=== PATIENT | female | born 1955 | race Caucasian/White ===

== ENCOUNTER 2018-03-02 21:28 | Observation (INO) | payer BC, OTHER ==
[2018-03-02] MEDS ORDERED: NS 1,000 ML IV ONE ×2 (21:50→22:34)
[2018-03-02] MEDS ORDERED: ONDANSETRON 4 MG/2 ML VIAL IVP ONE (21:50)
--- NOTE | 2018-03-02 21:52 | EDPHY ---
H & P Time Seen by Provider: 03/02/18 21:36 HPI/ROS: CHIEF COMPLAINT: Abdominal pain and vomiting HISTORY OF PRESENT ILLNESS: Patient was feeling well yesterday. She woke up at around 8:00 a.m. And felt nausea, within the next hour she had right-sided abdominal pain and multiple episodes of vomiting. No diarrhea. Symptoms a crampy and would get worse with the pain and she would vomit and feel little bit better. Not associated with fever or chills or urinary symptoms. No recent injury fall or trauma. No recent foreign travel. No previous abdominal surgery except for . REVIEW OF SYSTEMS: Eye: no change in vision ENT: no sore throat Cardiac: no chest pain or syncope Pulmonary: no cough or SOB Abdomen: HPI Musculoskeletal: no back pain Skin: no rash Neuro: no headache Constitutional: no fever : no urinary symptoms A comprehensive 10 point review of systems is otherwise negative aside from elements mentioned in the history of present illness. PAST MEDICAL HISTORY: and foot surgery Social history: , nonsmoker General Appearance: Alert and conversant, cooperative. Eyes: No scleral icterus. ENT, Mouth: Dry mucous membranes. Respiratory: Normal respiratory effort, breath sounds equal, lungs are clear to auscultation. Cardiovascular: Regular rate and rhythm. Gastrointestinal: Bilateral lower abdominal tenderness without rebound or guarding. Neurological: Alert, face symmetric, normal motor and sensory in extremities. Skin: Warm and dry, no rashes. Musculoskeletal: No peripheral edema. Psychiatric: Not agitated. Emergency Department course/MDM: Patient declined pain medication. IV normal saline 1 L and Zofran 4 mg IV for nausea and vomiting. I-STAT, CT scanning of abdomen and pelvis discussed and consented. Differential includes but not limited to bowel obstruction, renal colic, appendicitis, diverticulitis. 2225: Appendicitis on CT per Dr. Florian, with appendicolith. Surgical consultation and IV antibiotics. Discussed with Nicholas. Cefoxitin 1 g IV. Results discussed with the patient and her spouse, including CT results. Smoking Status: Never smoked Constitutional: Initial Vital Signs Temperature (C) 36.6 C 03/02/18 21:36 Heart Rate 90 03/02/18 21:36 Respiratory Rate 16 03/02/18 21:36 Blood Pressure 132/69 H 03/02/18 21:36 O2 Sat (%) 97 03/02/18 21:36 O2 Delivery Mode Room Air Allergies/Adverse Reactions: No Known Allergies Allergy (Unverified 03/02/18 21:36) Home Medications: Medication Instructions Recorded traMADol 03/02/18 Medical Decision Making - Diagnostics Imaging Results: Imaging Impressions Abdomen CT 03/02/18 21:55 Impression: 1. Findings compatible with appendicitis and appendicolith. 2. Incidental uterine fibroids. 3. Borderline splenomegaly. Findings discussed with Cayetano Underwood M.D. at 22:23 hour, 03/02/2018. Imaging: Discussed imaging studies w/ call center dispatcher Radiologist Differential Diagnosis: Differential considered including but not limited to gastroenteritis, food poisoning, appendicitis, diverticulitis, bowel obstruction. - Data Points Laboratory Results: Laboratory Results 03/02/18 21:46 03/02/18 03/02/18 03/02/18 21:53 21:46 21:46 WBC RBC Hgb POC Hgb 15.3 gm/dL gm/dL (12.6-16.3) Hct POC Hct 45 % % (38-47) MCV MCH MCHC RDW Plt Count MPV Neut % (Auto) Lymph % (Auto) [place] % (Auto) Eos % (Auto) Baso % (Auto) Nucleat RBC Rel Count Absolute Neuts (auto) Absolute Lymphs (auto) Absolute Monos (auto) Absolute Eos (auto) Absolute Basos (auto) Absolute Nucleated RBC Immature Gran % Immature Gran # POC Sodium 137 mEq/L mEq/L (135-145) Sodium Pending POC Potassium 3.4 mEq/L mEq/L (3.3-5.0) Potassium Pending POC Chloride 98 mEq/L mEq/L (97-110) Chloride Pending Carbon Dioxide Pending Anion Gap Pending POC BUN 11 mg/dL mg/dL (7-23) BUN Pending Creatinine Pending POC Creatinine 0.7 mg/dL mg/dL (0.6-1.0) Estimated GFR Pending Glucose Pending POC Glucose 150 mg/dL H mg/dL (70-100) Calcium Pending Total Bilirubin Pending Conjugated Bilirubin Pending Unconjugated Bilirubin Pending AST Pending ALT Pending Alkaline Phosphatase Pending Total Protein Pending Albumin Pending Lipase Pending 03/02/18 21:46 WBC 14.48 10^3/uL H 10^3/uL (3.80-9.50) RBC 4.68 10^6/uL 10^6/uL (4.18-5.33) Hgb 14.3 g/dL g/dL (12.6-16.3) POC Hgb Hct 40.4 % % (38.0-47.0) POC Hct MCV 86.3 fL fL (81.5-99.8) MCH 30.6 pg pg (27.9-34.1) MCHC 35.4 g/dL g/dL (32.4-36.7) RDW 12.2 % % (11.5-15.2) Plt Count 219 10^3/uL 10^3/uL (150-400) MPV 10.5 fL fL (8.7-11.7) Neut % (Auto) 86.5 % H % (39.3-74.2) Lymph % (Auto) 8.6 % L % (15.0-45.0) [place] % (Auto) 4.2 % L % (4.5-13.0) Eos % (Auto) 0.1 % L % (0.6-7.6) Baso % (Auto) 0.3 % % (0.3-1.7) Nucleat RBC Rel Count 0.0 % % (0.0-0.2) Absolute Neuts (auto) 12.50 10^3/uL H 10^3/uL (1.70-6.50) Absolute Lymphs (auto) 1.25 10^3/uL 10^3/uL (1.00-3.00) Absolute Monos (auto) 0.61 10^3/uL 10^3/uL (0.30-0.80) Absolute Eos (auto) 0.02 10^3/uL L 10^3/uL (0.03-0.40) Absolute Basos (auto) 0.05 10^3/uL 10^3/uL (0.02-0.10) Absolute Nucleated RBC 0.00 10^3/uL 10^3/uL (0-0.01) Immature Gran % 0.3 % % (0.0-1.1) Immature Gran # 0.05 10^3/uL 10^3/uL (0.00-0.10) POC Sodium Sodium POC Potassium Potassium POC Chloride Chloride Carbon Dioxide Anion Gap POC BUN BUN Creatinine POC Creatinine Estimated GFR Glucose POC Glucose Calcium Total Bilirubin Conjugated Bilirubin Unconjugated Bilirubin AST ALT Alkaline Phosphatase Total Protein Albumin Lipase Medications Given: Discontinued Medications Sodium Chloride (Ns) 1,000 mls @ 0 mls/hr IV EDNOW ONE; Wide Open PRN Reason: Protocol Stop: 03/02/18 21:51 Last Admin: 03/02/18 21:56 Dose: 1,000 mls Ondansetron HCl (Zofran) 4 mg IVP EDNOW ONE Stop: 03/02/18 21:51 Last Admin: 03/02/18 21:56 Dose: 4 mg Point of Care Test Results: Chemistry 03/02/18 21:53 POC Sodium 137 mEq/L mEq/L (135-145) POC Potassium 3.4 mEq/L mEq/L (3.3-5.0) POC Chloride 98 mEq/L mEq/L (97-110) POC BUN 11 mg/dL mg/dL (7-23) POC Creatinine 0.7 mg/dL mg/dL (0.6-1.0) POC Glucose 150 mg/dL H mg/dL (70-100) ISTAT H&H 03/02/18 21:53 POC Hgb 15.3 gm/dL gm/dL (12.6-16.3) POC Hct 45 % % (38-47) Departure - Departure Disposition: [facility] Inpatient Acute Clinical Impression: Acute appendicitis Qualifiers: Acute appendicitis type: with localized peritonitis Appendicitis gangrene presence: without gangrene Appendicitis perforation presence: without perforation Appendicitis abscess presence: without abscess Qualified Code(s): K35.30 - Acute appendicitis with localized peritonitis, without perforation or gangrene Nausea & vomiting Qualifiers: Vomiting type: unspecified Vomiting Intractability: non-intractable Qualified Code(s): R11.2 - Nausea with vomiting, unspecified Condition: Good
[2018-03-02] MEDS ORDERED: IOPAMIDOL (ISOVUE-300) 100 ML BTL ONE (21:56)
[2018-03-02 21:58] LABS: PLATELET COUNT 219 10^3/uL (150-400)
[2018-03-02] MEDS ORDERED: ONDANSETRON 4MG PREPACK#2 BTL TAKEHOME ONE (22:16)
[2018-03-02] MEDS ORDERED: cefOXitin SODIUM 1 GM in NS 50 ML IV ONE (22:25)
[2018-03-02] MEDS ORDERED: DIAZEPAM 5 MG/ML 1 ML SYR IVP ONE (22:50)
[2018-03-02] MEDS ORDERED: BUPIVACAINE 0.5% 30 ML SDV ONE (23:09)
[2018-03-02] MEDS ORDERED: METRONIDAZOLE 500 MG/NACL/100 ML BAG IV ONE (23:18)
[2018-03-02] MEDS ORDERED: MIDAZOLAM 2 MG/2 ML VIAL IVP ONE (23:39)
--- NOTE | 2018-03-02 23:53 | PDANEPAE ---
ANE History of Present Illness Appendectomy laparoscopic ANE Past Medical History - Cardiovascular History Hx Hypertension: No Hx Arrhythmias: No Hx Chest Pain: No Hx Coronary Artery / Peripheral Vascular Disease: No Hx CHF / Valvular Disease: No Hx Palpitations: No - Pulmonary History Hx COPD: No Hx Asthma/Reactive Airway Disease: No Hx Recent Upper Respiratory Infection: No Hx Oxygen in Use at Home: No Hx Sleep Apnea: No - Endocrine History Hx Diabetes: No Hypothyroid: No Hyperthyroid: No Obesity: no ANE Review of Systems Review of systems is: negative Review of Systems: - Exercise capacity METS (RN): 4 METS ANE Patient History - Allergies Allergies/Adverse Reactions: No Known Allergies Allergy (Unverified 03/02/18 21:36) - Home Medications Home medications: home medication list seen and reviewed Home Medications: traMADol 03/02/18 [Last Taken Unknown] - NPO status NPO Status: no food or drink >8 hours NPO Since - Liquids (Date): 03/02/18 NPO Since - Liquids (Time): 17:00 NPO Since - Solids (Date): 03/01/18 NPO Since - Solids (Time): 22:00 - Anes Hx Anes Hx: post operative nausea - Smoking Hx Smoking Status: Never smoked Marijuana use: Yes - Alcohol Use Alcohol Use: Rarely - Family Anes Hx Family Anes Hx: none ANE Labs/Vital Signs - Labs Result Diagrams: 03/02/18 21:46 03/02/18 21:46 - Vital Signs Blood Pressure: 127/76 Heart Rate: 85 Respiratory Rate: 18 O2 Sat (%): 96 Height: 165.1 cm Weight: 56.699 kg ANE Physical Exam - Airway Neck exam: FROM Mallampati Score: Class 2 Mouth exam: small mouth opening - Pulmonary Pulmonary: no respiratory distress, no rales or rhonchi - Cardiovascular Cardiovascular: regular rate and rhythym, no murmur, rub, or gallop - ASA Status ASA Status: I, E ANE Anesthesia Plan Anesthesia Plan: general endotracheal anesthesia Specialized Airway: video laryngoscope
--- NOTE | 2018-03-02 23:57 | PDGENHP ---
History & Physical Chief Complaint: rlq pain History of Present Illness: 62 female with 12 hrs of rlq pain and nausea and emesis. ct scan shows acute appendicitis. wbc 13k. risks and options fully discussed/ admit for lap appe Pertinent Past, Social, Family History: Pmh: foot surgery, csections. NKA. meds none. soc hx nonsmoker. Fam hx noncontributory. ros -10 pt review Relevant Physical Exam: Gen alert, no acute distress. chest clear. cor rr. abd soft, tender rlq with guarding and rebound. extrem ok except recent foot surgery. neuro physiologic. psych alert, oriented, cooperative Cardiorespiratory Assessment: acute appe. plan: lap appe/ risks and options fully discussed
[2018-03-02] MEDS ORDERED: MIDAZOLAM 2 MG/2 ML VIAL ONE (23:58)
[2018-03-03] MEDS ORDERED: ONDANSETRON 4 MG/2 ML VIAL IVP PRN ×2 (00:01→01:12)
[2018-03-03] MEDS ORDERED: OXYCODONE/APAP 5/325 TAB PO PRN (00:01)
[2018-03-03] MEDS ORDERED: HYDROmorphONE/DILAUDID 1 MG/ML INJ IVP PRN (00:01)
[2018-03-03] MEDS ORDERED: PROPOFOL/EMULSION 500 MG/50 ML BOTTLE IV ONE (00:02)
[2018-03-03] MEDS ORDERED: fentaNYL 100 MCG/2 ML INJ ONE ×2 (00:02)
[2018-03-03] MEDS ORDERED: ONDANSETRON 4 MG/2 ML VIAL ONE (00:08)
[2018-03-03] MEDS ORDERED: LIDOCAINE 2% 5 ML SDV ONE (00:08)
[2018-03-03] MEDS ORDERED: ROCURONIUM 50 MG/5 ML VIAL ONE (00:09)
[2018-03-03] MEDS ORDERED: D5W 1/2 NS W/ 20 KCl/L 1,000 ML IV SCH (00:15)
[2018-03-03] MEDS ORDERED: SUGAMMADEX SODIUM 200 MG/2 ML VIAL IVP ONE (00:48)
--- NOTE | 2018-03-03 01:02 | POSTOPPROG ---
Post Op Note Date of Operation: 03/03/18 Surgeon: Zack Peterson Anesthesiologist: ROBERT Anesthesia: GET(General Endotracheal) Pre-op Diagnosis: ACUTE APPE Post-op Diagnosis: SAME Indication: PAIN Procedure: LAP APPE Findings: ACUTE APPENDICITIS Inf/Abcess present in the surg proc area at time of surgery?: Yes Depth: Organ Space EBL: Minimal Complications: 0 Specimen(s): APPENDIX
[2018-03-03] MEDS ORDERED: NALOXONE HCL 0.4 MG/ML INJ IVP PRN (01:12)
[2018-03-03] MEDS ORDERED: fentaNYL 100 MCG/2 ML INJ IVP PRN (01:12)
[2018-03-03] MEDS ORDERED: HYDROmorphONE/DILAUDID 2 MG/ML INJ IVP PRN (01:12)
[2018-03-03] MEDS ORDERED: KETOROLAC 15 MG/1 ML SDV IVP SCH (06:00)
--- NOTE | 2018-03-03 08:07 | SOAPPROG ---
SOAP Progress Note Assessment/Plan: Assessment/Plan: 62 Y F s/p lap appy, nonperforated appendicitis. Doing very well. Pain controlled. Tolerating breakfast. Wounds ok. Will d/c to home. S: eager to go home. O: alert, nad, smiling no wob rrr abd soft, inc cdi 03/03/18 08:04 Objective: Vital Signs Temp Pulse Resp BP Pulse Ox 37.0 C 68 16 92/62 L 92 03/03/18 05:00 03/03/18 05:00 03/03/18 05:00 03/03/18 05:00 03/03/18 05:00 03/02/18 03/03/18 03/04/18 05:59 05:59 05:59 Intake Total 2240 Output Total 802 Balance 1438 ICD10 Worksheet Patient Problems: Problems Problem Status Onset Acute appendicitis Acute Nausea & vomiting Acute
--- NOTE | 2018-03-03 08:09 | POSTANESTH ---
Post Anesthetic Evaluation Cardiovascular Status: Normal, Stable Respiratory Status: Normal, Stable Level of Consciousness/Mental Status: Can Participate in Eval Pain Control: Adequate, Prn Tx Ordered Nausea/Vomiting Control: Adequate, Prn Tx Ordered Complications Possibly Related to Anesthesia: None Noted
[2018-03-03 09:15] VITALS: BP 105/67
--- NOTE | 2018-03-04 18:05 | GOP ---
DATE OF OPERATION: 03/02/2018 SURGEON: Zack Peterson MD PREOPERATIVE DIAGNOSIS: Acute appendicitis. POSTOPERATIVE DIAGNOSIS: Acute appendicitis. PROCEDURE PERFORMED: Laparoscopic appendectomy. FINDINGS: Patient was found to have acute purulent appendicitis without perforation. DESCRIPTION OF PROCEDURE: The patient was taken to the operating room where she received satisfactor y general endotracheal anesthesia. She was placed in supine position, prepped and draped in usual st erile fashion. Periumbilical incision was made. A Veress needle inserted. Pneumoperitoneum was established. Troca r was introduced. Laparoscope introduced. Good visualization was obtained. Two other trocars place d in the lower abdomen under direct vision. Cecum was rotated medially and the appendix was well vis ualized. It was elevated up. It was quite inflamed and covered with fibrinous exudate. Mesoappendi x was divided with the Harmonic scalpel until the base was skeletonized. It was then divided with a MARISELA stapler, placed in a specimen bag, and removed. Wound was irrigated. Hemostasis was assured. T rocars removed under direct vision. Trocar sites were closed with 0 Vicryl for the fascia, 4-0 Monoc ryl subcuticular stitch for the skin. All layers infiltrated with 0.5% Marcaine. Blood loss was neg ligible. Taken recovery room in good condition. There were no complications. /[id number]/MODL
== END 2018-03-03 11:10 | disposition home or self-care (01) ==
LOC: FOB 03-03 04:38
PROVIDERS: ADMIT Surgery; ATTEND Surgery
PROC: 0DTJ4ZZ Resection of Appendix, Percutaneous Endoscopic Approach (ICD-10-PCS; principal; 2018-03-03 00:01)
DX: K35.80 Unspecified acute appendicitis (principal); E86.9 Volume depletion, unspecified
CPT/HCPCS: 44970; 74177; 96361; 96365; 96375; 99285; G0378; 82435-PO; 82565-PO; 82947-PO; 84132-PO; 84295-PO; 84520-PO; 85014-PO; J0694; J1885; J2250; J2405; J2704; J3010; J3360; Q9967

== ENCOUNTER 2018-03-05 01:47 | Emergency (ER) | payer OTHER ==
[2018-03-05 02:15] LABS: PLATELET COUNT 200 10^3/uL (150-400)
[2018-03-05] MEDS ORDERED: MAGNESIUM CITRATE 300 ML BOTTLE PO ONE (02:41)
--- NOTE | 2018-03-05 02:41 | EDPHY ---
H & P Stated Complaint: abd pain post-appy, bloating "feel like i'm going to explode" Time Seen by Provider: 03/05/18 02:05 HPI/ROS: HPI The patient presents with diffuse abdominal pain which has been present for the last 1 day though is getting progressively worse. Patient states that her abdomen feels like it is going to explode. She is status post appendectomy by Dr. Peterson on March 02. She has been discharged from the hospital and has been eating and drinking without difficulty. She is taking of a small amount of Percocet as needed for pain. She had some loose stools yesterday morning, however has not had a normal bowel movement since her discharge and feels that her symptoms are related to constipation. She took 2 doses of nuchal lax today. She is able to pass gas which helped with her symptoms. REVIEW OF SYSTEMS 10 systems were reviewed and negative with the exception of the elements mentioned in the history of present illness. PMHx: Status post appendectomy Soc Hx: Here with her PHYSICAL General Appearance: Alert, no distress Eyes: Pupils equal and round no pallor or injection ENT, Mouth: Mucous membranes moist Respiratory: There are no retractions, lungs are clear to auscultation Cardiovascular: Regular rate and rhythm Gastrointestinal: Abdomen is slightly distended, nontender, bowel sounds are present, surgical dressings are clean, dry, intact Neurological: A&O, moves all extremities Skin: Warm and dry, no rashes Musculoskeletal: Neck is supple non tender Extremities: symmetrical, full range of motion Psychiatric: Patient is oriented X 3, there is no agitation Source: Patient Exam Limitations: No limitations - Personal History Current Tetanus/Diphtheria Vaccine: Yes Current Tetanus Diphtheria and Acellular Pertussis (TDAP): Yes - Medical/Surgical History Hx Asthma: No Hx Chronic Respiratory Disease: No Hx Diabetes: No Hx Cardiac Disease: Yes Hx Renal Disease: No Hx Cirrhosis: No Hx Alcoholism: No Hx HIV/AIDS: No Hx Splenectomy or Spleen Trauma: No Other PMH: mitral valve prolapse, L ankle surgery, appendectomy - Social History Smoking Status: Never smoked Constitutional: Initial Vital Signs Temperature (C) 36.3 C 03/05/18 01:49 Heart Rate 63 03/05/18 01:49 Respiratory Rate 20 03/05/18 01:49 Blood Pressure 171/69 H 03/05/18 01:49 O2 Sat (%) 100 03/05/18 01:49 O2 Delivery Mode Room Air Allergies/Adverse Reactions: No Known Allergies Allergy (Unverified 03/05/18 01:49) Home Medications: Medication Instructions Recorded oxyCODONE/APAP 5/325 [Percocet 1 - 2 tab PO Q4 PRN #15 tab 03/03/18 5/325 (*)] Aleve 03/05/18 Docusate Sodium-Senna Tablet 03/05/18 Medical Decision Making Differential Diagnosis: 62-year-old female who is postoperative day 2 from laparoscopic appendectomy presents with abdominal bloating and discomfort. On exam, she does have mild distension, bowel sounds are present, she is nontender. Basic labs were checked and were unremarkable. She refused an x-ray. She is convinced that her pain is related to constipation. I will send her home with magnesium citrate per her request. She does not want any further testing here. I do suspect her symptoms are related to constipation but I have also considered bowel obstruction, ileus. She will return if her pain is were she says. - Data Points Laboratory Results: Laboratory Results 03/05/18 02:00 03/05/18 02:00 03/05/18 03/05/18 02:00 02:00 WBC 8.11 10^3/uL 10^3/uL (3.80-9.50) RBC 4.07 10^6/uL L 10^6/uL (4.18-5.33) Hgb 12.2 g/dL L g/dL (12.6-16.3) Hct 36.8 % L % (38.0-47.0) MCV 90.4 fL fL (81.5-99.8) MCH 30.0 pg pg (27.9-34.1) MCHC 33.2 g/dL g/dL (32.4-36.7) RDW 12.5 % % (11.5-15.2) Plt Count 200 10^3/uL 10^3/uL (150-400) MPV 10.5 fL fL (8.7-11.7) Neut % (Auto) 53.6 % % (39.3-74.2) Lymph % (Auto) 35.3 % % (15.0-45.0) [place] % (Auto) 8.1 % % (4.5-13.0) Eos % (Auto) 1.8 % % (0.6-7.6) Baso % (Auto) 0.6 % % (0.3-1.7) Nucleat RBC Rel Count 0.0 % % (0.0-0.2) Absolute Neuts (auto) 4.34 10^3/uL 10^3/uL (1.70-6.50) Absolute Lymphs (auto) 2.86 10^3/uL 10^3/uL (1.00-3.00) Absolute Monos (auto) 0.66 10^3/uL 10^3/uL (0.30-0.80) Absolute Eos (auto) 0.15 10^3/uL 10^3/uL (0.03-0.40) Absolute Basos (auto) 0.05 10^3/uL 10^3/uL (0.02-0.10) Absolute Nucleated RBC 0.00 10^3/uL 10^3/uL (0-0.01) Immature Gran % 0.6 % % (0.0-1.1) Immature Gran # 0.05 10^3/uL 10^3/uL (0.00-0.10) Sodium 140 mEq/L mEq/L (135-145) Potassium 4.3 mEq/L mEq/L (3.5-5.2) Chloride 104 mEq/L mEq/L (97-110) Carbon Dioxide 25 mEq/l mEq/l (22-31) Anion Gap 11 mEq/L mEq/L (6-14) BUN 21 mg/dL mg/dL (7-23) Creatinine 0.6 mg/dL mg/dL (0.6-1.0) Estimated GFR > 60 Glucose 101 mg/dL H mg/dL (70-100) Calcium 8.9 mg/dL mg/dL (8.5-10.4) Medications Given: Discontinued Medications Magnesium Citrate (Magnesium Citrate) 300 ml PO ONCE ONE Stop: 03/05/18 02:42 Last Admin: 03/05/18 02:57 Dose: 300 ml Departure - Departure Disposition: Home, Routine, Self-Care Clinical Impression: S/P appendectomy Abdominal pain Qualifiers: Abdominal location: generalized Qualified Code(s): R10.84 - Generalized abdominal pain Constipation Qualifiers: Constipation type: unspecified constipation type Qualified Code(s): K59.00 - Constipation, unspecified Condition: Good Instructions: Constipation (DC) Additional Instructions: Please drink this bottle of magnesium citrate when you return home. If you're still feeling badly after this, I do recommend that you return to the ER follow up with your surgeon. If you're able to have a good bowel movement, then I recommend you begin taking MiraLax 17 g once daily for 1 week. Referrals: Maggy Corona MD [Primary Care Provider] - As per Instructions Zack Peterson MD [Medical Doctor] - As per Instructions
[2018-03-05 02:59] VITALS: BP 134/76
== END 2018-03-05 03:00 | disposition home or self-care (01) ==
DX: R10.84 Generalized abdominal pain (principal); G89.18 Other acute postprocedural pain; K59.00 Constipation, unspecified; Z90.49 Acquired absence of other specified parts of digestive tract